=== PATIENT | female | born 2005 | race Two or more races ===

== ENCOUNTER → 2024-10-10 | Outpatient (CLI) | payer BC, SELFPAY ==
[2024-10-10 08:33] LABS: Basophils % (Auto) 1 % (0-2.5); Eosinophils # (Auto) 0.1 Thou/mm3 (0.0-0.5); Eosinophils % (Auto) 1 % (0-10); Hematocrit 39.1 % (36.0-46.0); Immature Granulocytes % (Auto) 0 % (0-0); Immature Granulocytes Auto 0.01 Thou/mm3 (0.00-0.00); Lymphocytes # (Auto) 1.1 Thou/mm3 (1.0-4.8); Lymphocytes % (Auto) 27 % (10-50); Mean Corpuscular HGB Conc 33.2 g/dl (31.0-37.0); Mean Corpuscular Hemoglobin 30.2 pg (25.0-35.0); Mean Corpuscular Volume 91 fL (80-100); Monocytes # (Auto) 0.4 Thou/mm3 (0.0-0.8); Monocytes % (Auto) 10 % (0-12); Neutrophils # (Auto) 2.5 Thou/mm3 (1.8-7.7); Neutrophils % (Auto) 61 % (37-80); Nucleated Red Blood Cell % 0 /100 WBC (0); Platelet Count 210 Thou/mm3 (140-440); RDW Standard Deviation 43.8 fL (36.4-46.3); Red Blood Count 4.31 Miln/mm3 (4.00-5.20); White Blood Count 4.1 Thou/mm3 (3.6-11.0)
[2024-10-10 09:00] LABS: Collection Type, Urine Clean Catch; RBC,Urine 0 /hpf (0-3)
[2024-10-10 09:06] LABS: Alanine Aminotransferase 14 U/L (10-49); Albumin, Serum 4.5 gm/dL (3.5-5.0); Albumin/Globulin Ratio 1.9 (1.2-2.2); Alkaline Phosphatase 65 U/L (46-116); Anion Gap 4 (7-16); Aspartate Amino Transferase 15 U/L (0-34); BUN/Creatinine Ratio 14 Ratio (12-20); Bilirubin,Total 0.4 mg/dL (0.3-1.2); Blood Urea Nitrogen 10 mg/dL (9-23); Calcium 9.9 mg/dL (8.3-10.6); Calcium (Corrected) 9.9 mg/dL (8.5-10.1); Carbon Dioxide 28.6 mMol/L (20.0-31.0); Cardiac Risk Estimate 2.5 RATIO (3.7-5.6); Chloride 108 mMol/L (98-107); Cholesterol 167 mg/dL (132-200); Creatinine (Component) 0.7 mg/dL (0.6-1.3); Globulin 2.4 gm/dL (2.3-3.5); Glucose 91 mg/dL (74-106); HDL Cholesterol 66 mg/dL (40-60); LDL Cholesterol,Calculated 88 mg/dL (0-130); Osmolality,Calculated 280 (275-295); Potassium 4.4 mMol/L (3.4-5.1); Sodium 141 mMol/L (136-145); Total Protein 6.9 gm/dL (5.7-8.2); Triglycerides 66 mg/dL (30-150); eGFR > 60 See Note
[2024-10-10 09:15] LABS: Glucose Estimated Average 103 mg/dL (80-131); Hemoglobin A1C 5.2 % Hgb (4.8-6.0)
[2024-10-10 09:57] LABS: Bacteria,Urine Rare; Bilirubin,Urine Negative (Negative); Blood,Urine Negative (Negative); Clarity,Urine Clear (Clear/Hazy); Color,Urine Yellow (Lt Yel-Yel); Culture Indicated,Urine Not Indicated; Glucose, Urine Negative (Negative); Ketones,Urine 2+ (Negative); Leukocyte Esterase,Urine Negative (Negative); Nitrite,Urine Negative (Negative); Protein,Urine 1+ (Neg - Trace); Specific Gravity,Urine 1.037 (1.001-1.035); Squamous Epithelial Cell,Urine 1 /hpf (0-5); Urobilinogen,Urine Negative mg/dL (0.0-1.0); WBC,Urine 2 /hpf (0-5)
[2024-10-10 10:07] LABS: Total Iron Binding Capacity 280 mcg/dL (250-425)
[2024-10-10 10:18] LABS: Iron 33 mcg/dL (50-170); Percent Iron Saturation 11 % (20-55); Unsaturated Iron Binding 247 (225-295)
== END | disposition home or self-care (01) ==
PROVIDERS: PCP Family Medicine; Referring Provider Physician Assistant; Visit Provider Physician Assistant
DX: E16.2 Hypoglycemia, unspecified (principal)
CPT/HCPCS: 36415; 80053; 80061; 81001; 83036; 83540; 83550; 85025

== ENCOUNTER → 2024-10-14 | Outpatient (CLI) | payer BC, SELFPAY ==
[2024-10-14 09:00] LABS: Glucose, Fasting 89 mg/dL (74-106)
[2024-10-14 09:55] LABS: Glucose 1 Hour 114 mg/dL (120-170)
[2024-10-14 09:55] LABS: Glucose 1/2 Hour 133 mg/dL (110-170)
[2024-10-14 11:28] LABS: Glucose 3 Hour 51 mg/dL (70-120)
[2024-10-14 12:17] LABS: Glucose 2 Hour 102 mg/dL (70-120)
== END | disposition home or self-care (01) ==
PROVIDERS: PCP Family Medicine; Referring Provider Physician Assistant; Visit Provider Physician Assistant
DX: E16.2 Hypoglycemia, unspecified (principal)
CPT/HCPCS: 36415; 82951; 82952

== ENCOUNTER → 2024-11-28 | Outpatient (CLI) | payer BC, SELFPAY ==
[2024-11-28 10:46] LABS: Collection Type, Urine Clean Catch; RBC,Urine 0 /hpf (0-3); WBC,Urine 0 /hpf (0-5)
[2024-11-28 11:29] LABS: Bacteria,Urine Rare; Bilirubin,Urine Negative (Negative); Blood,Urine Negative (Negative); Clarity,Urine Clear (Clear/Hazy); Color,Urine Lt-Yellow (Lt Yel-Yel); Culture Indicated,Urine Not Indicated; Glucose, Urine Negative (Negative); Ketones,Urine Negative (Negative); Leukocyte Esterase,Urine Negative (Negative); Nitrite,Urine Negative (Negative); PH,Urine 6.5 (5.0-7.0); Protein,Urine Negative (Neg - Trace); Specific Gravity,Urine 1.015 (1.001-1.035); Squamous Epithelial Cell,Urine < 1 /hpf (0-5); Urobilinogen,Urine Negative mg/dL (0.0-1.0)
[2024-12-01 06:27] LABS: C-Peptide* 3.11 ng/mL (0.80-3.85)
== END | disposition home or self-care (01) ==
PROVIDERS: PCP Family Medicine; Referring Provider Physician Assistant; Visit Provider Physician Assistant
DX: R80.9 Proteinuria, unspecified (principal); E16.2 Hypoglycemia, unspecified
CPT/HCPCS: 36415; 81001; 84681

== ENCOUNTER 2025-10-18 09:48 | Outpatient (AMB) | payer BC, SELFPAY ==
[2025-10-18 10:06] VITALS: BP 108/71; PULSE 58; RESP 18; TEMP 36.8; O2SAT 97; BMI 26.3
--- NOTE | 2025-10-18 10:06 | AMB.GYNCLNOT ---
Vital Signs 10/18/25 10:06 Height 1.63 m Height Method Stated Weight 69.626 kg Weight Measurement Method Standing Scale BMI 26.3 BP 108/71 Blood Pressure Source Automatic Cuff Blood Pressure Location Right Upper Arm Position Sitting Respiration 18 Pulse 58 L Pulse Source Monitor Temp 98.3 F Temp Source Temporal Artery Scan Pulse Oximetry (%) 97 Oxygen Delivery Method Room Air Allergies/Home Meds Allergies & Medications Allergies No Known Allergies Allergy (Verified 10/18/25 10:07) Medication Reconciliation No Known Home Medications 10/18/25 [History Confirmed 10/18/25] Intake Visit Data Collection New Patient or Established: New Patient (never been to [facility]) Reason for Visit:: REFERRAL VAGINITIS Seen by Clinical Staff ONLY (RN/MA): No Rod Piler Required: No Do You Feel Safe at Home: Yes Authorities Contacted: N/A PCP or OBGYN visit in last 3 months: No Hx Now: No Are you currently on any form of Control: No Last menstrual period: 10/09/25 Pain Present Currently: No Pain Scale Used: Mejia-Rae/Numerical Pain scale:: 0 Smoking Status Smoking Status: Never smoker Immunizations Flu Vaccine in the Last 12 Months: No Flu Vaccine Exclusion Criteria: No Exclusion Criteria 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 1. Little interest or pleasure in doing things: not at all 2. Feeling down, depressed, or hopeless: not at all Total score: 0 PHQ-9 3. Trouble falling or staying asleep, or sleeping too much: Not at all 4. Feeling tired or having little energy: Not at all 5. Poor appetite or overeating: Not at all 6. Feeling bad about yourself - or that you are a failure or have let yourself or your family down: Not at all 7. Trouble concentrating on things, such as reading the newspaper or watching television: Not at all 8. Moving or speaking so slowly that other people could have noticed? - Or the opposite - being so fidgety or restless that you have been moving around a lot more than usual: not at all 9. Thoughts that you would be better off or of hurting yourself in some way: Not at all Total score: 0 If you checked off any problems, how difficult have these problems made it for you to do your work, take care of things at home, or get along with other people?: not difficult at all Source: Developed by Drs. Bennie Mccarty, Stephanie Macias, Igor Emery and colleagues, with an educational sonam from [employer]. Depression screen completed yes Social History Living Situation History Marital Status: Life Partner Lives With: Family Housing: House Tobacco History Smoking Status: Never smoker Second Hand Smoke Exposure: No Alcohol History Alcohol Intake: Never Domestic Abuse History Do You Feel Safe at Home: Yes History of Present Illness HPI Narrative Recurrent bacterial vaginosis Isabella Mon is a 20-year-old female presenting with recurrent bacterial vaginosis. The patient reports that her symptoms began after a trip to [facility] in October of last year, which she identifies as the trigger for her ongoing vaginal discharge. During the trip, she experienced a significant amount of clear discharge initially, followed by white-vani, clumpy discharge that has persisted since then. She describes having discharge daily, noting that even after showering and putting on clean underwear, she will have discharge again by the end of the day. The patient denies itching and is uncertain about any foul odor, specifically noting she does not experience a fishy smell. She has been treated previously by Dr. Garcia's office with metronidazole and clindamycin, with recent cultures reportedly showing yeast. The patient also mentions that she recently became sexually active and is interested in discussing contraceptive options, though she expresses hesitation about hormonal control methods. Medications: - Metronidazole (Flagyl) - Previously prescribed by Dr. Garcia's office for bacterial vaginosis - Clindamycin - Previously prescribed by Dr. Garcia's office for bacterial vaginosis - Fluconazole - Previously prescribed by Dr. Garcia's office for yeast infection Social History: - Recently became sexually active Exam General General Appearance: alert, in no apparent distress and healthy appearing Head Head exam: atraumatic Neck Neck exam: Present normal inspection and trachea midline Chest Chest inspection: Present normal inspection and symmetric chest wall rise External exam: Present normal external exam; Absent tenderness Speculum exam: Present normal speculum exam; Absent erythema, vaginal discharge, cervical discharge, vaginal bleeding, foreign body or laceration Bimanual exam: Absent cervical motion tenderness Neuro Neurological exam: Present oriented X3 Psych Psychiatric exam: Present normal affect and normal mood Office Procedures [facility] LOC & Office Proc's Nursing/Assessment Patient Status: Initial/New Patient OB Clinic Nursing Assessment: Medication Reconciliation, Update PMH in EMR and Vital Signs OB Clinic Coordination of Care: Complex Care and Chronic Disease 1-5, Education Complex Pt/Fam, Consent,records obtained, informed consent, Lab and Imaging orders, Results/Orders obtained and Staff clarify orders New Patient Charge New Patient Point Assignment: 1109 New Patient Point Charge: FACILITY SALES AND ADMIN Level 3 ([id number]) Assessment & Plan Diagnosis / Problem List (1) Acute vaginitis: Status: Acute (2) Encounter for other general counseling and advice on contraception: Status: Acute Plan Recurrent Bacterial Vaginosis Assessment: Patient reports persistent vaginal discharge since October following exposure to pool/ocean water during travel to [place]. The initial trigger appears to be swimsuit and water exposure causing nonspecific vaginitis, which disrupted the normal vaginal mucosal barrier and predisposed to recurrent low-grade bacterial infections. Patient describes ongoing whitish, clumpy discharge without significant itching or foul odor. Previous treatment with prolonged antibiotics showed some improvement but symptoms persist. Recent culture reportedly showed yeast. The clinical picture suggests mixed bacterial and fungal infections with competition between organisms, where clearing one pathogen allows overgrowth of the other. Plan: - Obtain vaginal culture and sensitivity testing - Treat simultaneously with both antibiotics and antifungal medication to prevent bacterial-yeast competition and overgrowth - Contact Dr. Garcia's office to obtain previous culture results Contraception Counseling Assessment: Patient recently became sexually active and is seeking information about contraceptive options. She expressed hesitation about hormonal control methods. Plan: - Discuss contraceptive options after completing vaginal culture procedure
== END 2025-10-18 10:51 | disposition home or self-care (01) ==
LOC: HODSOBC 09:48
PROVIDERS: PCP Family Medicine; Referring Provider Family Medicine; Supervising Provider Obstetrics & Gynecology; Visit Provider Obstetrics & Gynecology
DX: N76.0 Acute vaginitis (principal); Z30.09 Encounter for other general counseling and advice on contraception
CPT/HCPCS: 99203; G0463